=== PATIENT | female | born 1995 | race Caucasian/White ===

== ENCOUNTER 2018-08-06 23:15 | Emergency (ER) | payer OTHER ==
[~2018-08-06] VITALS: Ht 165.1 cm; Wt 63.0 kg
[2018-08-06 23:22] VITALS: Ht 165.1 cm; Wt 63.0 kg
[2018-08-07 03:58] VITALS: BP 113/64; PULSE 60; RESP 18
--- NOTE | 2018-08-07 21:52 | ERD ---
ER Documentation Chief Complaint Chief Complaint bilateral multiple finger pain after putting on gloves at work 2 hrs ago HPI Patient is a 22-year-old female who presents with no past medical history presents the ER for concerns of bilateral finger pain which started prior to arrival. Patient states she works at [employer] and was helping to clean up at the end of the night. Patient states she recalls feeling that sharp, poking pain in her bilateral hands. Patient states that she either touched "mesh fiberglass wall" which contain "tiny glass particles" or there may have been glass in the glove she was using to clean with. Patient states that every time she touches anything she can feel the tiny glass particles poking her. ROS All systems reviewed and are negative except as per history of present illness. Allergies Allergies: Coded Allergies: oxycodone (Verified Allergy, Unknown, 08/06/18) PMhx/Soc Medical and Surgical Hx: pt denies Medical Hx, pt denies Surgical Hx FmHx Family History: No diabetes, No coronary disease, No other Physical Exam Vitals Vital Signs Date Temp Pulse Resp B/P (MAP) Pulse Ox O2 O2 Flow FiO2 Time Delivery Rate 08/07/18 97.7 60 18 113/64 100 Room Air 03:58 (80) 08/06/18 98.2 74 18 129/73 100 23:22 (91) Physical Exam GENERAL: Well-developed, well-nourished female. Appears in no acute distress. HEAD: Normocephalic, atraumatic. EYES: Pupils are equally reactive bilaterally. EOMs grossly intact. No conjunctival erythema. NECK: Supple. No meningismus. Normal range of motion of the neck. LUNG: No respiratory distress. EXTREMITIES: Equal pulses bilaterally. No peripheral clubbing, cyanosis or edema. No unilateral leg swelling. Able to bend all digits at MCP, PIP and DIPJs. Normal pulses bilaterally. 2+ radial pulses. NEUROLOGIC: Alert and oriented. Moving all four extremities without any difficulty. Normal speech. Steady gait. SKIN: Fine hair like clear fiber glass like particles noted on the volar aspects of fingers. Numerous particles present. Unable to definitively count number of particles due to size and lighting. Particles are extremely superficial. No erythema or warmth. No streaking. Procedures/MDM MEDICAL DECISION MAKING: Patient is a 22-year-old female presents to the ER for concerns of glass particles on her bilateral hands after touching possible fiberglass wall at work. Vital signs reviewed. Patient was afebrile. Patient was not hypoxic. Patient was hemodynamically stable. On exam, tiny fine hairline glass particles were noted on bilateral hands. Particles appeared extremely superficial. Patient reported pain only when touching objects and she felt as if the glass was poking into her. ob scrub tech attempted to remove particles using Tegaderm however unsuccessful. Also attempted to remove particles with light brush strokes however unsuccessful. Patient was advised to soak hands in warm water multiple times a day upon returning home. Patient was advised that particles will likely come out on their own as they are very superficial over the next few days. Discussed with Dr. Nevarez who agreed particles will likely come out on their own. Patient was advised to follow-up with hand specialist for further management of symptoms. Referral information provided. Low suspicion for laceration, tendon injury or ligament injury. DISCHARGE: At this time, patient is stable for discharge and outpatient management. I have instructed the patient to follow-up with his/her primary care physician in 1-2 days. I have discussed with the patient the possibility of needing to see a specialist for further workup and imaging studies if symptoms persist. I have instructed the patient to promptly return to the ER for any new or worsening symptoms including increased pain, fever, nausea, vomiting, weakness or LOC. The patient and/or family expressed understanding of and agreement with this plan. All questions were answered. Home care instructions were provided. Disclaimer: Inadvertent spelling and grammatical errors are likely due to EHR/dictation software use and do not reflect on the overall quality of patient care. Also, please note that the electronic time recorded on this note does not necessarily reflect the actual time of the patient encounter. Departure Diagnosis: Primary Impression: Superficial foreign body of finger of right hand Encounter type: initial encounter Qualified Codes: S60.459A - Superficial foreign body of unspecified finger, initial encounter Additional Impression: Superficial foreign body of finger of left hand Encounter type: initial encounter Qualified Codes: S60.459A - Superficial foreign body of unspecified finger, initial encounter Condition: Fair Patient Instructions: Splinter Removal Referrals: JODIE ROSA MD [facility] YOU HAVE RECEIVED A MEDICAL SCREENING EXAM AND THE RESULTS INDICATE THAT YOU DO NOT HAVE A CONDITION THAT REQUIRES URGENT TREATMENT IN THE EMERGENCY DEPARTMENT. FURTHER EVALUATION AND TREATMENT OF YOUR CONDITION CAN WAIT UNTIL YOU ARE SEEN IN YOUR DOCTORS OFFICE WITHIN THE NEXT 1-2 DAYS. IT IS YOUR RESPONSIBILITY TO MAKE AN APPOINTMENT FOR FOLOW-UP CARE. IF YOU HAVE A PRIMARY DOCTOR --you should call your primary doctor and schedule an appointment IF YOU DO NOT HAVE A PRIMARY DOCTOR YOU CAN CALL OUR PHYSICIAN REFERRAL HOTLINE AT IF YOU CAN NOT AFFORD TO SEE A PHYSICIAN YOU CAN CHOSE FROM THE FOLLOWING [facility] [address] [facility] [address] [facility] [address] [facility] [address] [facility] [address] [facility]. [facility] [address] [facility]. [facility] YOU HAVE RECEIVED A MEDICAL SCREENING EXAM AND THE RESULTS INDICATE THAT YOU DO NOT HAVE A CONDITION THAT REQUIRES URGENT TREATMENT IN THE EMERGENCY DEPARTMENT. FURTHER EVALUATION AND TREATMENT OF YOUR CONDITION CAN WAIT UNTIL YOU ARE SEEN IN YOUR DOCTORS OFFICE WITHIN THE NEXT 1-2 DAYS. IT IS YOUR RESPONSIBILITY TO MAKE AN APPOINTMENT FOR FOLOW-UP CARE. IF YOU HAVE A PRIMARY DOCTOR --you should call your primary doctor and schedule and appointment IF YOU DO NOT HAVE A PRIMARY DOCTOR YOU CAN CALL OUR PHYSICIAN REFERRAL HOTLINE AT . IF YOU CAN NOT AFFORD TO SEE A PHYSICIAN YOU CAN CHOSE FROM THE FOLLOWING [facility] INSTITUTIONS: [facility] [address] [place] [address] [facility] [address] [place] [address] [facility]ED WITH [facility] [address] [place] [address] Additional Instructions: Call your primary care doctor TOMORROW for an appointment during the next 1-2 days.See the doctor sooner or return here if your condition worsens before your appointment time. MARIBEL CASTANEDA PA-C Aug 07, 2018 21:47
== END 2018-08-07 04:00 | disposition home or self-care (01) ==
LOC: FTE 23:15
DX: S60.459A Superficial foreign body of unspecified finger, initial encounter (principal); X58.XXXA Exposure to other specified factors, initial encounter; Y92.89 Other specified places as the place of occurrence of the external cause
CPT/HCPCS: 99282